=== PATIENT | male | born 1995 | race Caucasian/White ===

== ENCOUNTER 2020-07-24 13:46 | Outpatient (CLI) | payer OTHER, SELFPAY ==
[2020-07-27 08:22] LABS: SARS-CoV-2 RNA Undetected (Undetected); SARS-CoV-2 Specimen Source Nasopharynx
== END 2020-07-24 14:06 ==
PROVIDERS: PCP Nurse Practitioner; Visit Provider Nurse Practitioner Adult Health
DX: Z11.59 Encounter for screening for other viral diseases (principal)
CPT/HCPCS: U0003

== ENCOUNTER 2023-06-20 12:27 | Outpatient (REF) | payer OTHER, SELFPAY ==
[2023-06-22 13:28] LABS: Chlamydia Result Negative (Negative); GC Result Negative (Negative)
== END 2023-06-20 12:28 | disposition home or self-care (01) ==
LOC: LBN 12:27
PROVIDERS: PCP Nurse Practitioner; Visit Provider Nurse Practitioner
DX: Z11.3 Encounter for screening for infections with a predominantly sexual mode of transmission (principal)
CPT/HCPCS: 87491; 87591

== ENCOUNTER 2023-11-28 11:17 | Outpatient (REF) | payer OTHER, SELFPAY ==
[2023-11-29 14:14] LABS: Chlamydia Result Negative (Negative); GC Result Negative (Negative)
== END 2023-11-28 11:18 | disposition home or self-care (01) ==
LOC: LBN 11:17
PROVIDERS: PCP Nurse Practitioner; Visit Provider Nurse Practitioner
DX: Z11.3 Encounter for screening for infections with a predominantly sexual mode of transmission (principal)
CPT/HCPCS: 87491; 87591